=== PATIENT | male | born 1935 | race Caucasian/White ===

== ENCOUNTER 2017-06-11 22:43 | Emergency (ER) | payer MEDICARE ==
[~2017-06-11] VITALS: Ht 188 cm; Wt 80.0 kg
[~2017-06-11 22:43] MED LIST: ASPI81 PO; B COTAB3 PO; ECHI125C PO; FISH1000 PO; GLUC500C4 PO; LISI2.5T55 PO; LOVA1TAB47 PO; SAW500CA6 PO; SELE200T PO; TAB-TAB PO; TAMS0.4C67 PO; TRAZ50TA4 PO; VITA20003 PO; VITA400C70 PO
[2017-06-11 22:53] VITALS: BP 114/59; PULSE 75; RESP 16; TEMP 98.5; O2SAT 95
[2017-06-11] MEDS ORDERED: TRAZ100T10 PO (23:03)
[2017-06-11] MEDS ORDERED: LOSA25TA PO (23:03)
[2017-06-11] MEDS ORDERED: LOVA20TA PO (23:03)
[2017-06-11] MEDS ORDERED: METF500T PO (23:03)
[2017-06-11] MEDS ORDERED: SYMB80AE INH (23:03)
[2017-06-11] MEDS ORDERED: BUPR100T4 PO (23:03)
[2017-06-11] MEDS ORDERED: TAMS0.4C4 (23:03)
--- NOTE | 2017-06-11 23:38 | PD ---
HPI . Fall Chief Complaint: Fall Time Seen by Provider: 22:48 Travel History International Travel<30 days: No Contact w/Intl Traveler<30days: No Traveled to known affect area: No History of Present Illness HPI This is a care home patient he was sent us following a fall. The story that we got is that he slid to the ground. The patient has no complaints. The family asked that the patient be brought to the hospital to be checked out. PFSH Past Medical History Cancer: Yes (BCC; SQUAMOUS CELL CA) Diabetes: No Genitourinary: Yes (TAKES FLOMAX) Hepatitis: No Hiatal Hernia: No Hypertension: Yes Neurologic: Yes Thyroid Disease: No Past Surgical History Abdominal Surgery: Yes (2005 RIGHT INGUINAL HERNIA) Pacemaker: No Other Surgery: Yes Social History Alcohol Use: No Tobacco Use: No Substance Use: No Allergies-Medications (Allergen,Severity, Reaction): Coded Allergies: No Known Allergies (Unverified , 04/10/12) Reported Meds & Prescriptions Reported Meds & Active Scripts Active Reported Symbicort Inh (Budesonide/Formoterol Fumarate) 80-4.5 Mcg/Act Aero 1 Puff INH Q12HR Tamsulosin (Tamsulosin HCl) 0.4 Mg Cap 0.4 Mg HS Lovastatin 20 Mg Tab 20 Mg PO DAILY Bupropion HCl 100 Mg Tab 150 Mg PO TID Trazodone (Trazodone HCl) 100 Mg Tablet 100 Mg PO HS Losartan (Losartan Potassium) 25 Mg Tab 25 Mg PO DAILY Metformin (Metformin HCl) 500 Mg Tab 250 Mg PO BIDPC Review of Systems Except as stated in HPI: all other systems reviewed are Neg Physical Exam Narrative GENERAL: Awake and alert and in no acute distress. SKIN: Warm and dry. Intact with no bruising or abrasions noted. HEAD: Normocephalic/atraumatic. EYES: Pupils are equal. Extraocular movements are intact. NECK: Normal range of motion. Nontender. CARDIOVASCULAR: Regular rate and rhythm. RESPIRATORY: Nonlabored respirations. ABDOMEN: Nontender. MUSCULOSKELETAL: Full passive range of motion of all major joints. No deformity of any of the long bones. NEUROLOGICAL: Alert and oriented to self. No cranial nerve deficits noted. Customer Manager strengths are full and equal. [id number]-[id number] exam is intact. He is able to lift both legs up off the bed and hold them there. PSYCHIATRIC: Appropriate mood and affect. Data Data Last Documented VS Vital Signs Date Time Temp Pulse Resp B/P (MAP) Pulse Ox O2 Delivery O2 Flow Rate FiO2 06/11/17 22:53 98.5 75 16 114/59 (77) 95 Room Air MDM Medical Decision Making Medical Screen Exam Complete: Yes Emergency Medical Condition: Yes Differential Diagnosis My differential diagnosis of head trauma includes but is not limited to scalp contusion, concussion, intracerebral hemorrhage. Differential diagnosis of extremity trauma includes but is not limited to fracture, sprain or strain, dislocation, contusion Narrative Course This patient was brought to us for evaluation following a fall at a local care home. The patient has no complaints. The history from the care home is that he slid to the ground and probably did not suffer any injury. He has no external signs of injury. He will be discharged back to the care home. Diagnosis Primary Impression: Fall Qualified Codes: W19.XXXA - Unspecified fall, initial encounter Disposition: DISCHARGE HOME Condition: Stable Aimee Weldon MD Jun 11, 2017 23:38
== END 2017-06-12 00:23 | disposition home or self-care (01) ==
LOC: NEPE 22:43
DX: Z04.3 Encounter for examination and observation following other accident (principal)
CPT/HCPCS: 99283

== ENCOUNTER 2017-07-20 07:05 | Emergency (ER) | payer MEDICARE, OTHER ==
[~2017-07-20 07:05] MED LIST changes: -ASPI81 PO; -B COTAB3 PO; +BUPR100T4 PO; -ECHI125C PO; -FISH1000 PO; -GLUC500C4 PO; -LISI2.5T55 PO; +LOSA25TA PO; -LOVA1TAB47 PO; +LOVA20TA PO; +METF500T PO; -SAW500CA6 PO; -SELE200T PO; +SYMB80AE INH; -TAB-TAB PO; +TAMS0.4C4; -TAMS0.4C67 PO; +TRAZ100T10 PO; -TRAZ50TA4 PO; -VITA20003 PO; -VITA400C70 PO
[2017-07-20 07:10] VITALS: BP 128/61; PULSE 76; RESP 16; TEMP 97.3; O2SAT 97
[2017-07-20] MEDS ORDERED: MEMA1TAB2 PO (07:25)
[2017-07-20] MEDS ORDERED: ALPR0.25 PO (07:25)
[2017-07-20] MEDS ORDERED: DONE5TAB7 PO (07:25)
--- NOTE | 2017-07-20 08:05 | PD ---
HPI Chief Complaint: Fall Time Seen by Provider: 08:02 Travel History International Travel<30 days: No Contact w/Intl Traveler<30days: No Traveled to known affect area: No History of Present Illness HPI 81-year-old male patient with history of dementia, frequent falls, had lost balance and fell at home according to his hitting his head, has a small 2 cm shallow scalp laceration. Questionable LOC. He currently is complaining of right shoulder pain. He denies any trouble breathing, chest pains, abdominal pains, or other injuries. He apparently was able to ambulate using a walker after the fall. states that that is his baseline. Modifying Factors: None Associated Signs & Symptoms: Fall, head injury, right shoulder injury Risk Factors: Elderly, dementia PFSH Past Medical History Cancer: Yes (BCC; SQUAMOUS CELL CA) Dementia: Yes Diabetes: No Genitourinary: Yes (TAKES FLOMAX) Hepatitis: No Hiatal Hernia: No Hypertension: Yes Neurologic: Yes Thyroid Disease: No Tetanus Vaccination: > 5 Years ?: Not Past Surgical History Abdominal Surgery: Yes (2005 RIGHT INGUINAL HERNIA) Pacemaker: No Other Surgery: Yes Social History Alcohol Use: No Tobacco Use: No Substance Use: No Allergies-Medications (Allergen,Severity, Reaction): Coded Allergies: No Known Allergies (Unverified Adverse Reaction, Unknown, 07/20/17) Reported Meds & Prescriptions Reported Meds & Active Scripts Active Reported Memantine 10 Mg Tab 10 Mg PO BID Alprazolam 0.25 Mg Tab 0.25 Mg PO Q8H PRN Donepezil 5 Mg Tab 5 Mg PO HS Tamsulosin (Tamsulosin HCl) 0.4 Mg Cap 0.4 Mg HS Lovastatin 20 Mg Tab 20 Mg PO DAILY Bupropion HCl 100 Mg Tab 50 Mg PO TID Trazodone (Trazodone HCl) 100 Mg Tablet 100 Mg PO HS Losartan (Losartan Potassium) 25 Mg Tab 25 Mg PO DAILY Metformin (Metformin HCl) 500 Mg Tab 250 Mg PO BIDPC Review of Systems ROS Limitations: Poor Historian Except as stated in HPI: all other systems reviewed are Neg Physical Exam Narrative GENERAL: Well-developed elderly white male patient currently in mild distress. Awake and alert. SKIN: Focused skin assessment warm/dry. HEAD: 2 cm right scalp laceration. Normocephalic. EYES: Pupils equal and round. No scleral icterus. No injection or drainage. ENT: No nasal bleeding or discharge. Mucous membranes pink and moist. NECK: Trachea midline. No JVD. CARDIOVASCULAR: Regular rate and rhythm. No murmur appreciated. RESPIRATORY: No accessory muscle use. Clear to auscultation. Breath sounds equal bilaterally. GASTROINTESTINAL: Abdomen soft, non-tender, nondistended. Hepatic and splenic margins not palpable. Pelvis: Stable and nontender to palpation. EXTREMITIES: No clubbing, cyanosis, or edema. No joint tenderness, effusion, or edema noted. Mild tenderness to palpation of the posterior right shoulder area without obvious deformities. MUSCULOSKELETAL: No obvious deformities. No clubbing. No cyanosis. No edema. NEUROLOGICAL: Awake and alert. No obvious cranial nerve deficits. Motor grossly within normal limits. Normal speech. PSYCHIATRIC: Appropriate mood and affect; insight and judgment normal. Data Data Last Documented VS Vital Signs Date Time Temp Pulse Resp B/P (MAP) Pulse Ox O2 Delivery O2 Flow Rate FiO2 07/20/17 07:10 97.3 76 16 128/61 (83) [address] Brain W/O Iv Contrast(Rout) (07/20/17 07:58) Ct Cerv Spine W/O Contrast (07/20/17 07:58) Shoulder, Complete (>2vws) (07/20/17 08:02) Spine, Cervical Fl/Ext Only (07/20/17 ) [place] J Collar (07/20/17 ) Ed Discharge Order (07/20/17 11:17) MDM Medical Decision Making Medical Screen Exam Complete: Yes Emergency Medical Condition: Yes Medical Record Reviewed: Yes Interpretation(s) Last 24 hours Impressions Shoulder X-Ray 07/20/17 0802 Signed Impressions: CONCLUSION: Head CT 07/20/17 0758 Signed Impressions: CONCLUSION: Cervical Spine CT 07/20/17 0758 Signed Impressions: CONCLUSION: Cervical Spine X-Ray 07/20/17 0000 Signed Impressions: CONCLUSION: Differential Diagnosis Intracranial injuries versus contusions versus fractures Narrative Course X-rays and CAT scans did not show any signs of acute fractures or dislocations. However, the CT of the C-spine did show quite a bit of degenerative disease of the neck, and a x-ray flexion-extension was suggested by radiologist in order to evaluate for any instability. X-ray did show some anterolisthesis of C5 and C6 which corrected with extension. Case was discussed with Dr. Langston who would like me to place [place] J collar and the patient and to follow-up and neurosurgery. Return for new issues as needed. The plan has been discussed with patient's and she states understanding. Diagnosis Primary Impression: Fall Referrals: Luis Langston MD Disposition: 01 DISCHARGE HOME Condition: Stable Layne Purdy MD July 20, 2017 08:05
--- NOTE | 2017-07-20 09:13 | RADRPT ---
EXAM DATE: 07/20/2017 8:54 AM EDT AGE/SEX: 81 years / Male INDICATIONS: Right anterior shoulder pain after fall. CLINICAL DATA: This is the patient's initial encounter. Patient reports that signs and symptoms have been present for 1 day and indicates a pain score of 6/10. MEDICAL/SURGICAL HISTORY: None. None. COMPARISON: No prior [facility] exams available for comparison. FINDINGS: There is a small cortical irregularity on the top of the acromion process which may represent a small cortical nondisplaced fracture. Otherwise, the rest of the bony structures are intact. There is good alignment at the AC joint. There are mild degenerative changes at the shoulder joint. No joint dislo cation is seen.. Osseous density is normal. Soft tissues are unremarkable. No radiopaque foreign b odies seen. CONCLUSION: 1. Small cortical irregularity on top of the acromion process which may represent a small cortical n ondisplaced fracture. Recommend correlation with point tenderness. 2. Degenerative changes at the shoulder joint. Electronically signed by: Bernardino Alvarez MD 07/20/2017 9:12 AM EDT
--- NOTE | 2017-07-20 09:20 | RADRPT ---
EXAM DATE: 07/20/2017 9:13 AM EDT AGE/SEX: 81 years / Male INDICATIONS: Patient fell, right frontal laceration CLINICAL DATA: This is the patient's initial encounter. Patient reports that signs and symptoms have been present for 1 day and indicates a pain score of 4/10. MEDICAL/SURGICAL HISTORY: Hypertension. Dementia None. RADIATION DOSE: 31.20 CTDI (mGy) COMPARISON: No prior [facility] exams available for comparison. TECHNIQUE: CT of the head without contrast. Using automated exposure control and adjustment of the mA and/or kV according to patient size, radiation dose was kept as low as reasonably achievable to ob tain optimal diagnostic quality images. FINDINGS: Cerebrum: The ventricles and cortical sulci are mildly dilated. There is decreased density in the p eriventricular white matter. No evidence of midline shift, mass lesion, hemorrhage or acute infarctio n. No extraaxial fluid collections are seen. Posterior Fossa: The cerebellum and brainstem are intact. The 4th ventricle is midline. The cerebe llopontine angle is unremarkable. Extracranial: The visualized portion of the orbits is intact. Skull: The calvaria is intact. No evidence of skull fracture. CONCLUSION: 1. No acute abnormality is seen. 2. Age-related atrophy and suspected small vessel ischemic change in the white matter. Electronically signed by: Reginaldo Kyle MD 07/20/2017 9:18 AM EDT
--- NOTE | 2017-07-20 09:42 | RADRPT ---
EXAM DATE: 07/20/2017 9:29 AM EDT AGE/SEX: 81 years / Male INDICATIONS: Patient fell, right frontal laceration CLINICAL DATA: This is the patient's initial encounter. Patient reports that signs and symptoms have been present for 1 day and indicates a pain score of 4/10. MEDICAL/SURGICAL HISTORY: Hypertension. Dementia None. RADIATION DOSE: 15.65 CTDI (mGy) COMPARISON: No prior [facility] exams available for comparison. TECHNIQUE: Contiguous axial images were obtained using helical multirow detector technique. The vol umetric data was post-processed with multiplanar reconstruction in oblique axial, sagittal, and coron al planes. Using automated exposure control and adjustment of the mA and/or kV according to patient s ize, radiation dose was kept as low as reasonably achievable to obtain optimal diagnostic quality john ges. FINDINGS: OSSEOUS STRUCTURES: Vertebral body heights are maintained. Osseous structures are intact without evid ence for acute bony fracture. Dens is intact. ALIGNMENT: 3 mm anterolisthesis of C5 on C6. Sagittal alignment is otherwise maintained. There is a n ormal C1-2 relationship. Facets are normally aligned. SOFT TISSUES: There is no significant prevertebral soft tissue hematoma. No significant cervical andrea nopathy or gross mass. The thyroid appears unremarkable. Visualized lung apices demonstrate biapical centrilobular emphysema. 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 Multilevel prominent facet arthropathy. Bony central canal is patent. Mild right and moderate left bony neural foraminal narrowing at C5-6. CONCLUSION: 1. 3 mm anterolisthesis of C5 on C6 likely due to degenerative facet arthrosis. Flexion and extensio n views may be obtained if there is significant clinical concern for ligamentous instability at this level. 2. No acute fracture. 3. 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 Electronically signed by: Ilya Zapien MD 07/20/2017 9:40 AM EDT
--- NOTE | 2017-07-20 11:04 | RADRPT ---
EXAM DATE: 07/20/2017 10:51 AM EDT AGE/SEX: 81 years / Male INDICATIONS: Neck Pain, Post fall CLINICAL DATA: This is the patient's initial encounter. Patient reports that signs and symptoms have been present for 1 day and indicates a pain score of 4/10. MEDICAL/SURGICAL HISTORY: None. None. COMPARISON: No prior [facility] exams available for comparison. FINDINGS: Flexion and extension views of the spine were performed. There is anterior subluxation of C4 on C5 i n the order of 4 mm and C5 on C6 in the order of 5 mm in flexion. The C4-C5 alignment is normal in ex tension. There continues to be 5 mm of anterior subluxation of C5 on C6 in extension. There is disc s pace narrowing at the C6-C7 level with prominent anterior marginal osteophytes. There is facet hypert rophy seen throughout the cervical spine. CONCLUSION: Anterior subluxation of C4 on C5 and C5 on C6. The C4-C5 subluxation is reduced in extension. The sub luxation at the C5-C6 level remains constant in the flexion and extension. Electronically signed by: Reginaldo Kyle MD 07/20/2017 11:03 AM EDT
[2017-07-20 12:20] VITALS: BP 122/64
== END 2017-07-20 12:23 | disposition home or self-care (01) ==
LOC: NEPE 07:05
DX: S01.01XA Laceration without foreign body of scalp, initial encounter (principal); F03.90 Unspecified dementia, unspecified severity, without behavioral disturbance, psychotic disturbance, mood disturbance, and anxiety; M25.511 Pain in right shoulder; W01.0XXA Fall on same level from slipping, tripping and stumbling without subsequent striking against object, initial encounter; Y92.009 Unspecified place in unspecified non-institutional (private) residence as the place of occurrence of the external cause
CPT/HCPCS: 70450; 72040; 72125; 73030; 99284; L0172